=== PATIENT | female | born 1995 | race Caucasian/White ===

== ENCOUNTER 2023-11-27 19:13 | Emergency (ER) | payer MEDICAID ==
[~2023-11-27] VITALS: Ht 157.5 cm; Wt 78.0 kg
[2023-11-27 19:22] VITALS: O2SAT 99
[2023-11-27 20:03] LABS: CLARITY URINE CLEAR (CLEAR); COLOR URINE YELLOW (YELLOW); GLUCOSE URINE 3+ (NEGATIVE); KETONES URINE 1+ (NEGATIVE); LEUKOCYTE ESTERASE URINE NEGATIVE (NEGATIVE); NITRITE URINE NEGATIVE (NEGATIVE); OCCULT BLOOD URINE NEGATIVE (NEGATIVE); PH URINE 6.5 (4.5-8.0); PROTEIN URINE NEGATIVE (NEGATIVE); SPECIFIC GRAVITY URINE 1.043 (1.005-1.030); UROBILINOGEN URINE 0.2 E.U./dL (0.2-1.0)
[2023-11-27 20:13] LABS: BACTERIA URINE NONE SEEN; RBC URINE 0-2 /hpf (0-2); SQUAMOUS EPITHELIAL CELL URINE 2+ /lpf (RARE/1+); WBC URINE 0-2 /hpf (0-2)
[2023-11-27] MEDS ORDERED: IBUP-2029 MT (22:39)
[2023-11-27 23:03] VITALS: BP 102/52; PULSE 123; RESP 20; TEMP 98.6
== END 2023-11-27 23:05 | disposition home or self-care (01) ==
LOC: ER 19:13
DX: R10.2 Pelvic and perineal pain (principal); R58 Hemorrhage, not elsewhere classified; Z98.890 Other specified postprocedural states
CPT/HCPCS: 76830; 76856; 81003; 81025; 99284